=== PATIENT | female | born 1995 ===

== ENCOUNTER 2017-11-09 03:42 | Emergency (ER) | payer MEDICAID, OTHER ==
[2017-11-09 04:10] VITALS: BMI 32.8
[2017-11-09 04:13] VITALS: RESP 16
--- NOTE | 2017-11-09 04:30 | ED PDOC ---
HPI: CCC, URI, Sore Throat Chief Complaint (Provider): throat pain and fever History Per: Patient History/Exam Limitations: language barrier (eritrean) Onset/Duration Of Symptoms: Days (3) Current Symptoms Are (Timing): Still Present Location Of Pain: Throat Sick Contacts (Context): None Associated Symptoms: Fever, Sore Throat Severity: Mild Pain Scale Rating Of: 4 <Viraj Laura - Last Filed: 11/09/17 05:47> <Gloria Melo - Last Filed: 11/09/17 20:10> Chief Complaint (Nursing): ENT Problem Additional Complaint(s): 22 F with no pmhx presents with throat pain and fever. Throat pain started 3 days ago, exacerbated with swallowing, localized mild pain. Alleviated when not swallowing, Intermittent pain. Last PO normal foods at dinner, also tolerating liquid diet. With subjective fever. She has taken motrin and tylenol. Denies recent sick contacts. ROS Denies CP/SOB/N/V. pmd: none pmhx: none fam: throat cancer soc: denies smoking, alcohol, illicit drugs Lives with rx: none surgery: none NKDA (Viraj Laura) Supervising Attending Note - Supervising Attending Note The Documented history was done by the: Physician Heat Plant Specialist The documented physical exam was done by the: Physician Heat Plant Specialist, Attending Physician - Attestation: I have personally seen and examined this patient.: Yes I have fully participated in the care of the patient.: Yes I have reviewed all pertinent clinical information, including history, physical exam and plan: Yes <Gloria Melo - Last Filed: 11/09/17 20:10> Past Medical History - Medical History PMH: Asthma - Surgical History Surgical History: No Surg Hx - Family History Family History: States: Unknown Family Hx Other Family History: throat cancer - Living Arrangements Living Arrangements: With Family - Social History Current smoker - smoking cessation education provided: No Alcohol: None Drugs: Denies <Viraj Laura - Last Filed: 11/09/17 05:47> <Gloria Melo - Last Filed: 11/09/17 20:10> Vital Signs: Last Vital Signs Temp 98.2 F 11/09/17 05:54 Pulse 72 11/09/17 05:54 Resp 16 11/09/17 05:54 BP 122/70 11/09/17 05:54 Pulse Ox 98 11/09/17 05:54 - Home Medications Home Medications: Ambulatory Orders Medication Instructions Recorded Ibuprofen [Motrin] 600 mg PO Q6 #30 tab 03/17/14 Cephalexin [Keflex] 500 mg PO BID #14 cap 03/27/14 Ibuprofen [Motrin Tab] 600 mg PO Q8 PRN #60 tab 11/09/17 - Allergies Allergies/Adverse Reactions: Allergies Allergy/AdvReac Type Severity Reaction Status Date / Time No Known Allergies Allergy Verified 11/09/17 04:10 Review of Systems Constitutional: Positive for: Fever, Chills Cardiovascular: Negative for: Chest Pain Respiratory: Negative for: Cough, Shortness of Breath Gastrointestinal: Negative for: Nausea, Vomiting, Abdominal Pain Genitourinary Female: Positive for: Dysuria <Viraj Laura - Last Filed: 11/09/17 05:47> Physical Exam - Reviewed Vital Signs Reviewed: Yes - Physical Exam Appears: Positive for: Uncomfortable Eye Exam: Positive for: EOMI ENT: Positive for: Tonsillar Swelling (mild). Negative for: Sinus Pain/Drainage , Tonsillar Exudate Neck: Positive for: Painless ROM Cardiovascular/Chest: Positive for: Regular Rate, Rhythm, Chest Non Tender. Negative for: Murmur Respiratory: Positive for: Normal Breath Sounds. Negative for: Wheezing Gastrointestinal/Abdominal: Positive for: Normal Exam, Bowel Sounds, Soft. Negative for: Tenderness Back: Positive for: L CVA Tenderness, R CVA Tenderness Extremity: Positive for: Normal ROM. Negative for: Calf Tenderness Neurologic/Psych: Positive for: Alert, bowl attendant II-XII, Oriented <Viraj Laura - Last Filed: 11/09/17 05:47> - ECG O2 Sat by Pulse Oximetry: 99 <Supa Lauraang - Last Filed: 11/09/17 05:47> <Gloria Melo - Last Filed: 11/09/17 20:10> - Progress ED Course And Treament: 22 yo F with no pmhx presents with odynophagia and fever -UA with Gc/C -Rapid strep -monitor vitals 04:56 Pt requests medication for pain management 05:16 -ua/preg neg -Naproxen 500 mg 05:43 Pt seen and examined at bedside resting comfortably labs reviewed. Pt d/c home with Ibuprofen 600 mg q8 ER precautions reviewed with patient Pt encouraged to establish PMD for possible further management of throat pain Case dw Dr. Kameron Laura MD PGY2 (Viraj Laura) Disposition - Patient ED Disposition Is Patient to be Admitted: No - Disposition Disposition: Routine/Home Disposition Time: 05:47 <Viraj Laura - Last Filed: 11/09/17 05:47> <Gloria Melo - Last Filed: 11/09/17 20:10> - Clinical Impression Clinical Impression: Throat pain in adult, Dysuria - Disposition Condition: GOOD Additional Instructions: Please follow up with primary care doctor in 3-5 days. Prescriptions: Ibuprofen [Motrin Tab] 600 mg PO Q8 PRN #60 tab PRN Reason: Pain, Moderate (4-7) Instructions: Sore Throat, Adult (DC), Dysuria, Adult (DC) Forms: [employer] (Frisian) Print Language: SINHALA
[2017-11-09] MEDS ORDERED: Naproxen 500 MG TAB PO STA (05:15)
[2017-11-09] MEDS ORDERED: Naproxen 500 MG TAB PO ONE (05:24)
[2017-11-09 05:56] VITALS: BP 122/70; PULSE 72; TEMP 98.2; O2SAT 98
== END 2017-11-09 05:54 | disposition home or self-care (01) ==
LOC: H.ER 03:42
DX: J02.9 Acute pharyngitis, unspecified (principal); R30.0 Dysuria